=== PATIENT | male | born 1970 | race Hispanic/Latino ===

== ENCOUNTER 2018-07-29 15:50 | Emergency (ER) | payer SELFPAY ==
[~2018-07-29] VITALS: Ht 180.3 cm; Wt 106.6 kg
[~2018-07-29 15:50] MED LIST: FLAGYL500 MG PO; LEVAQUIN500 MG PO; PEPCID20 MG PO
--- OUTSIDE RECORDS SUMMARY | 2018-07-29 15:52 | XMS REPORT ---
[facility] Address Unknown Phone Unavailable Care Team Providers Care [facility] Therapist Name Role Phone DAXA MAYES Unavailable Unavailable Problems This patient has no known problems. Allergies, Adverse Reactions, Alerts This patient has no known allergies or adverse reactions. Medications This patient has no known medications. Results Test Description Test Time Test Comments Text Results Atomic Results Result Comments ABDOMEN-1VIEW (KUB) [place] [address] Patient Name: KIKI LOVE I MR #: [id number] : 1970 Age/Sex: 46/M Req #: [id number] Adm Physician: DAXA MAYES MD Ordered by: DAXA MAYES MD Report #: [id number] Location: MED/SURG Room/Bed: [facility] Procedure: [id number] DX/ABDOMEN-1VIEW (KUB) Exam Date: 01/17/17 Exam Time: 1040 REPORT STATUS: Signed EXAMINATION: ABDOMEN-1VIEW (KUB) 01/17/2017 9:39 AM COMPARISON: CT of the abdomen and pelvis from 01/16/2017 INDICATION: Ureteral calculi DISCUSSION: 1 view of the abdomen (AP supine) Nonobstructive bowel gas pattern No evidence of pneumoperitoneum. 4 mm calcification projected over the expected location of the right distal ureter, unchanged in position. Bones and soft tissues are unremarkable. IMPRESSION: 4 mm right distal ureteral calculus, unchanged in position. Antonia Roberts MD Signed by: Dr. Antonia Roberts M.D. on 01/17/2017 12:04 PM Dictated By: ANTONIA ROBERTS MD 1204 Transcribed By: NORAH on 01/17/17 1204 COPY TO: DAXA MAYES MD CT ABDOMEN/PELVIS WO [place] [address] Patient Name: KIKI LOVE I MR #: [id number] : 1970 Age/Sex: 46/M Req #: [id number] Adm Physician: Ordered by: ELICEO CARDONA MD Report #: [id number] Location: ER Room/Bed: Procedure: [id number] CT/CT ABDOMEN/PELVIS WO Exam Date: 01/16/17 Exam Time: 1343 REPORT STATUS: Signed EXAM: CT Abdomen and Pelvis WITHOUT contrast INDICATION: COMPARISON: None. TECHNIQUE: Abdomen and pelvis were scanned utilizing a multidetector helical scanner from the lung base to the pubic symphysis without administration of IV contrast. Absence of intravenous contrast decreases sensitivity for detection of focal lesions and vascular pathology. Coronal and sagittal reformations were obtained. Routine protocol was performed. IV CONTRAST: None ORAL CONTRAST: Water COMPLICATIONS: None RADIATION DOSE: Total DLP: 700.5 mGy*cm Estimated effective dose: (DLP x 0.015 x size factor) mSv CTDIvol has been reviewed. It is below the limits set by the Radiation Protocol Committee (RPC). FINDINGS: LINES and TUBES: None. LOWER THORAX: Unr emarkable HEPATOBILIARY: No focal hepatic lesions. No biliary ductal dilation. GALLBLADDER: Cholelithiasis. No wall thickening. SPLEEN: No splenomegaly. PANCREAS: No suspicious contour abnormalities or ductal dilatation. ADRENALS: Left adrenal 0.8 cm nodule measures less than 10 HU, compatible with a lipid rich adenoma. KIDNEYS/URETERS: Mild right hydroureteronephrosis with a 0.5 cm calculus at the right ureterovesicular junction. Punctate nonobstructing calculus in the right superior renal pole. No left hydronephrosis. No suspicious contour abnormalities. GI TRACT: Small hiatal hernia. No abnormal distention, wall thickening, or evidence of bowel obstruction. Diffuse left colonic diverticula with mild peridiverticular stranding in the left lower quadrant involving the sigmoid colon (series 3 image 160). No free air. No abscess. Appendix is normal. PELVIC ORGANS/BLADDER: Prostate is enlarged measuring approximately 5.8 cm in diameter. Urinary bladder is collapsed. No bladder or urethral calculi. LYMPH NODES: No lymphadenopathy. VESSELS: Unremarkable. PERITONEUM / RETROPERITONEUM: No free air or fluid. BONES: Unremarkable. SOFT TISSUES: Small fat-containing umbilical hernia. Small direct left inguinal hernia. Subcutaneous 0.7 cm lesion in the right anterior abdominal wall (series 3 image 65) may represent a sebaceous cyst. IMPRESSION: 1. Mildly obstructing 0.5 cm calculus at the right UVJ results in mild upstream hydroureteronephrosis. 2. Acute uncomplicated sigmoid diverticulitis. 3. Cholelithiasis. 4. Left adrenal lipid rich adenoma. 5. Small hiatal hernia. 6. Enlarged prostate. Signed by: DR. Chase Mcgregor MD on 01/16/2017 2:25 PM Dictated By: CHASE MCGREGOR MD 1421 Transcribed By: NORAH on 01/16/17 1428 COPY TO: ELICEO CARDONA MD
--- NOTE | 2018-07-29 17:50 | Diagnostic Imaging Report ---
CT BRAIN WO HISTORY: Dizziness COMPARISON: None. TECHNIQUE: Noncontrast axial scans were obtained from skull base to the vertex. Coronal and sagittal reconstructions obtained from the axial data. One or more of the following dose reduction techniques were used: Automated exposure control, adjustment of the mA and/or kV according to patient size, and/or utilization of iterative reconstruction technique. DISCUSSION: Scalp/Skull: Unremarkable. Brain sulci: Appropriate for patient's age. Ventricles: Normal in size and configuration. No hydrocephalus. Extra-axial spaces: No masses or fluid collections. Parenchyma: No abnormal densities. No mass, hemorrhage, or large vascular territory acute infarct. Dural sinuses: No abnormal densities. Sellar/Suprasellar region: Intact. Skull base: Intact. Incidental findings: Mild right lower lamina papyracea deformity may be from remote trauma. IMPRESSION: No intracranial abnormalities. Signed by: Dr. Thom Villalba M.D. on 07/29/2018 5:47 PM
[2018-07-30] MEDS ORDERED: AMLODIPINE BESYLATE 10 MG TAB PO SCH (09:00)
== END 2018-07-29 18:44 | disposition home or self-care (01) ==
LOC: ER 15:50
DX: G44.219 Episodic tension-type headache, not intractable (principal); H53.8 Other visual disturbances; I10 Essential (primary) hypertension; F17.210 Nicotine dependence, cigarettes, uncomplicated
CPT/HCPCS: 70450; 99283